=== PATIENT | female | born 1995 | race Caucasian/White ===

== ENCOUNTER 2019-01-04 18:06 | Emergency (ER) | payer OTHER ==
[~2019-01-04] VITALS: Ht 157.5 cm; Wt 62.8 kg
[~2019-01-04 18:06] MED LIST: DEPO-PROVERA; DOXY1TAB3 PO
[2019-01-04 18:37] VITALS: BP 152/81; PULSE 82; RESP 16; Ht 157.5 cm; Wt 62.8 kg
[2019-01-04] MEDS ORDERED: ONDANSETRON (ODT) 4 MG TAB ODT STA (20:22)
== END 2019-01-04 22:36 | disposition home or self-care (01) ==
LOC: FTE 18:06
DX: O21.0 Mild hyperemesis gravidarum (principal); R10.2 Pelvic and perineal pain; Z3A.09 9 weeks gestation of pregnancy
CPT/HCPCS: 36415; 76805; 80053; 81001; 83690; 84702; 85025; Z7502; Z7610; 81003